=== PATIENT | male | born 1945 | race Caucasian/White ===

== ENCOUNTER → 2024-06-21 14:22 | Outpatient (CLI) | payer OTHER, SELFPAY ==
--- NOTE | 2024-06-21 14:25 | DI.ECHO.S_ITS ---
[place] [facility] : : [address] : : [place] : : [id number] : : Phone: [phone] Echocardiogram Report + + :Name: ABRIL BRIGGS Study Date: 06/21/2024 Height: 70 in : :Hospital ReadingLocation: Weight: 260 lb : : Gender: Male BSA: 2.3 m2 : :: 1945 Age: 78 yrs BP: 136/91 mmHg: :Reason For Study: CONGESTIVE HEART FAILURE : :Ordering Physician: KARLOINA, : :SOSA Performed By: Mariam Grady : :Referring: FANTASMA TURCIOS : + + Interpretation Summary 1) Normal left ventricular size, wall motion, and systolic function (EF 60- 65%). 2) Normal right ventricular size and function. 3) No significant valvular abnormalities. 4) There is a trivial pericardial effusion noted. 5) Compared to the echo done 04/21/2023, no significant change. Procedure: A two-dimensional transthoracic echocardiogram with color flow and Doppler was performed. The study quality was technically adequate. Comparison is made with the echocardiogram of 04/21/2023. The heart rate ranged between 70-90 bpm during the study. Frequent ectopy. Left Ventricle: The left ventricle is normal in size. Left ventricular wall thickness is at the upper limits of normal. The ejection fraction is estimated to be 60-65%. Left ventricular systolic function appears normal without focal wall motion abnormalities. Right Ventricle: The right ventricle is normal in size and function. Atria: The left atrium is mildly dilated. Right atrial size is normal. There is no Doppler evidence for an interatrial shunt. Mitral Valve: The mitral valve leaflets appear to open well. There is trace mitral regurgitation. Aortic Valve: The aortic valve is trileaflet. The aortic valve opens well. There is no aortic valve stenosis. No aortic regurgitation is present. Tricuspid Valve: The tricuspid valve leaflets are thin and pliable. No tricuspid regurgitation. Pulmonary artery pressures cannot be estimated because of the lack of a measurable TR jet velocity. Pulmonic Valve: The pulmonic valve leaflets are thin and pliable; valve motion is normal. There is no pulmonic valvular regurgitation. Great Vessels: The aortic root is normal size. The dimensions of the ascending aorta are normal. The IVC is dilated (diameter is greater than 2.1 cm) yet it collapses greater than 50% with a sniff. This suggests a right atrial pressure of 8 mm Hg. Pericardium/ Pleura There is a trivial pericardial effusion noted. There is no pleural effusion. MMode/2D Measurements & Calculations LVIDd: 5.1 cm LVOT diam: 2.2 cm LVIDs: 3.3 cm Ao root diam: 3.5 cm FS: 35.1 % asc Aorta Diam: 3.6 cm IVSd: 1.3 cm Ao Arch Diam (Prox Trans): 2.8 cm LVPWd: 1.0 cm LV ricketts. diameter/BSA (cm/m^2): 2.2 LV sys. diameter/BSA (cm/m^2): 1.4 LA A2 area: 27.8 cm2 RA long axis: 6.1 cm LA A4 area: 24.6 cm2 RA area: 16.2 cm2 LA length (vol): 7.1 cm RA vol: 36.7 ml LA vol: 82.4 ml RA : 15.7 ml/m2 LA vol index: 35.3 ml/m2 IVC diam: 2.4 cm RVD1 (basal): 3.7 cm TAPSE: 2.5 cm Doppler Measurements & Calculations Ao V2 max: 206.6 cm/sec LVOT Max Ayad: 149.6 cm/sec Ao V2 mean: 148.9 cm/sec LV V1 max P.0 mmHg Ao max P.1 mmHg LV V1 VTI: 27.6 cm Ao mean P.7 mmHg JEAN(I,D): 2.6 cm2 Ao V2 VTI: 41.1 cm JEAN(V,D): 2.8 cm2 sev ratio: 0.67 JEAN indexed to BSA (cm^2/m^2): 1.1 MV E max ayad: 75.1 cm/sec PA V2 max: 111.1 cm/sec MV A max ayad: 63.7 cm/sec PA V2 mean: 83.3 cm/sec MV E/A: 1.2 PA mean P.0 mmHg Med Peak E' Ayad: 8.5 cm/sec E/E' med: 8.8 Lat Peak E' Ayad: 9.0 cm/sec E/E' lat: 8.3 E/e' average: 8.6 MV dec time: 0.24 sec SV(OT): 106.7 ml Reading Physician:04:43 PM
== END ==
LOC: ECHO 14:24
PROVIDERS: Referring Provider Chiropractor; Visit Provider Chiropractor
DX: I50.9 Heart failure, unspecified (principal)
CPT/HCPCS: 93306

== ENCOUNTER → 2024-07-13 11:35 | Outpatient (CLI) | payer OTHER, SELFPAY ==
--- NOTE | 2024-07-13 11:45 | EKG_ITS ---
[facility] [address] [place] [address] Test Date: 2024-07-13 Pat Name: Corby Berumen Department: [facility] Room: Gender: Male Manager Call Center: [facility] : 1945 Requested By: Order Number: [id number] Reading MD: Ken Huang Measurements Intervals [place] Rate: 69 P: 50 [place]: 190 QRS: -2 QRSD: 94 T: 49 QT: 380 QTc: 407 Interpretive Statements Normal sinus rhythm Electronically Signed On 07-13-2024 12:57:32 PST by Ken Huang
== END ==
PROVIDERS: Referring Provider Chiropractor; Visit Provider Chiropractor
DX: I50.9 Heart failure, unspecified (principal)
CPT/HCPCS: 93005